=== PATIENT | female | born 1945 | race Caucasian/White ===

== ENCOUNTER 2018-08-25 13:09 | Emergency (ER) | payer OTHER ==
[~2018-08-25] VITALS: Ht 160 cm; Wt 52.6 kg
[2018-08-25 13:32] VITALS: BP 139/77
--- NOTE | 2018-08-25 14:15 | NUR ---
ASSUMED CARE OF PT FROM LOBBY AT THIS TIME.
[2018-08-25] MEDS ORDERED: ESTR0.5T PO (14:26)
[2018-08-25] MEDS ORDERED: ASCO10004 PO (14:26)
[2018-08-25] MEDS ORDERED: AMLO2.5T3 PO (14:26)
[2018-08-25] MEDS ORDERED: SIMV20TA3 PO (14:26)
[2018-08-25] MEDS ORDERED: MEDR5TAB2 PO (14:26)
[2018-08-25] MEDS ORDERED: OMEP-110 PO (14:26)
[2018-08-25] MEDS ORDERED: ZINC50CA PO (14:26)
[2018-08-25] MEDS ORDERED: CHOL10003 PO (14:26)
[2018-08-25] MEDS ORDERED: MULT-6 PO (14:26)
[2018-08-25] MEDS ORDERED: CALC200T20 PO (14:26)
--- NOTE | 2018-08-25 14:30 | NUR ---
PT BIB SPOUSE WITH 4 DAYS HX OF COUGH, BODY ACHES, CHILLS. SPOUSE HAS BEEN SICK WITH SIMILAR SYMPTOMS. PT DENIES ANY COLORED SPUTUM.
[2018-08-25 14:55] LABS: RAPID INFLUENZA A POSITIVE (Negative); RAPID INFLUENZA B Negative (Negative)
[2018-08-25 14:57] LABS: BASOPHILS # (AUTO) 0.02 x10^3/uL (0-0.1); BASOPHILS % (AUTO) 0 % (0-1); EOSINOPHILS # (AUTO) 0.01 x10^3/uL (0-0.4); EOSINOPHILS % (AUTO) 0 % (1-7); LYMPHOCYTES # (AUTO) 1.02 x10^3/uL (1-3.4); LYMPHOCYTES % (AUTO) 22 % (22-44); MD NO; MEAN CORPUSCULAR HEMOGLOBIN 33.8 pg (27.0-34.8); MEAN CORPUSCULAR HGB CONC 33.8 g/dL (32.4-35.8); MEAN CORPUSCULAR VOLUME 100.1 fL (80-100); MEAN PLATELET VOLUME 8.2 fL (7.4-10.4); MONOCYTES # (AUTO) 0.59 x10^3/uL (0.2-0.8); MONOCYTES % (AUTO) 13 % (2-9); NEUTROPHILS # (AUTO) 3.01 x10^3/uL (1.8-6.8); NEUTROPHILS % (AUTO) 65 % (42-75); PLATELET COUNT 204 x10^3/uL (130-400); RED BLOOD COUNT 4.48 x10^6/uL (3.82-5.3); RED CELL DISTRIBUTION WIDTH 12.6 % (9.6-15.2)
[2018-08-25 15:01] LABS: ALBUMIN 3.4 g/dL (3.4-5.0); ANION GAP 9 mmol/L (5-15); CALCIUM 8.3 mg/dL (8.5-10.1); CHLORIDE 102 mmol/L (98-107)
--- NOTE | 2018-08-25 15:03 | NUR ---
REPORT TO SHERRIE MARY.
[2018-08-25 15:08] LABS: ALANINE AMINOTRANSFERASE 26 U/L (12-78); ALKALINE PHOSPHATASE 46 U/L (45-117); BILIRUBIN,TOTAL 0.4 mg/dL (0.2-1.0); CREATININE 1.01 mg/dL (0.55-1.02); TOTAL PROTEIN 7.2 g/dL (6.4-8.2); TROPONIN I < 0.015 ng/mL (0.000-0.045)
== END 2018-08-25 16:05 | disposition home or self-care (01) ==
LOC: ED 15:49
DX: J09.X2 Influenza due to identified novel influenza A virus with other respiratory manifestations (principal); I10 Essential (primary) hypertension; E78.00 Pure hypercholesterolemia, unspecified
CPT/HCPCS: 36415; 71045; 80053; 83880; 84484; 85025; 87400; 99284